=== PATIENT | male | born 1990 | race Two or more races ===

== ENCOUNTER 2020-05-02 19:44 | Emergency (ER) | payer MEDICAID, OTHER ==
[~2020-05-02] VITALS: Ht 185.4 cm; Wt 63.5 kg
[2020-05-02 20:02] VITALS: BP 114/81
== END 2020-05-02 21:42 | disposition left against medical advice (07) ==
LOC: ER 19:44
DX: T25.021A Burn of unspecified degree of right foot, initial encounter (principal); Z53.21 Procedure and treatment not carried out due to patient leaving prior to being seen by health care provider; X11.8XXA Contact with other hot tap-water, initial encounter; Y93.89 Activity, other specified; Y92.89 Other specified places as the place of occurrence of the external cause; Y99.8 Other external cause status

== ENCOUNTER 2020-07-15 06:02 | Emergency (ER) | payer MEDICAID ==
[~2020-07-15] VITALS: Ht 185.4 cm; Wt 59.0 kg
[2020-07-15 06:12] VITALS: BP 113/82
== END 2020-07-15 11:13 | disposition left against medical advice (07) ==
LOC: ER 06:02
DX: M79.671 Pain in right foot (principal); Z53.21 Procedure and treatment not carried out due to patient leaving prior to being seen by health care provider

== ENCOUNTER 2020-11-22 15:08 | Emergency (ER) | payer MEDICAID, OTHER ==
[~2020-11-22] VITALS: Ht 188 cm; Wt 77.1 kg
[2020-11-22 16:45] VITALS: BP 113/86
[2020-11-22] MEDS ORDERED: CLINDAMYCIN 900MG IV 50 ML IV ONE (17:00)
[2020-11-22] MEDS ORDERED: cefTRIAXone 1GM/50ML D5W 50 ML IV ONE (17:00)
[2020-11-22 18:57] LABS: Basophils # (auto) 0 10 ^3/uL (0-0.2); Basophils % (auto) 0.5 % (0.0-2.0); Eosinophils # (auto) 0.1 10 ^3/uL (0-0.8); Eosinophils % (auto) 1.3 % (0.0-7.0); Lymphocytes # (auto) 2.1 10 ^3/uL (0.4-5.4); Monocytes # (auto) 0.9 10 ^3/uL (0-1.3)
[2020-11-22 18:59] LABS: Hematocrit 41.6 % (41.0-53.0); Hemoglobin 13.1 g/dL (13.5-17.5); Lymphocytes % (auto) 26.4 % (10.0-50.0); Mean Corpuscular Hemoglobin 21.5 pg (28.0-32.0); Mean Corpuscular Hgb Conc. 31.4 g/dL (32.0-36.0); Mean Corpuscular Volume 68.5 fL (80.0-100.0); Monocytes % (auto) 11.2 % (0.0-12.0); Neutrophils # (auto) 4.8 10 ^3/uL (1.6-8.6); Neutrophils % (auto) 60.6 % (37.0-80.0); Platelet Count (auto) 267 10^3/uL (140-450); Red Blood Cells 6.07 10^6/uL (4.5-5.90); Red Cell Distribution Width 18.7 % (11.8-14.3)
[2020-11-22 19:21] LABS: Lactic Acid w/Reflex 2.2 mmol/L (0.4-2.0)
[2020-11-22 19:25] LABS: Albumin 3.8 g/dL (3.4-5.0); Calcium 9.1 mg/dL (8.5-10.1); Potassium 3.7 mmol/L (3.5-5.1)
[2020-11-22 19:27] LABS: BUN/Creatinine Ratio 11.3; Bilirubin, Total 0.6 mg/dL (0.2-1.0); Total Protein 9.5 g/dL (6.4-8.2)
== END 2020-11-22 19:39 | disposition home or self-care (01) ==
LOC: EDUNIT# 15:08 → ER 15:08 → EDBD 15:08 → ER 19:39
DX: M86.8X7 Other osteomyelitis, ankle and foot (principal); D64.9 Anemia, unspecified; E86.0 Dehydration; G83.9 Paralytic syndrome, unspecified
CPT/HCPCS: 36415; 73700; 80053; 83605; 85025

== ENCOUNTER 2021-02-12 15:50 | Emergency (ER) | payer MEDICAID ==
[~2021-02-12] VITALS: Ht 188 cm; Wt 63.5 kg
[2021-02-12 15:50] VITALS: BP 136/72
== END 2021-02-12 23:05 | disposition home or self-care (01) ==
LOC: ER 15:50
DX: N39.0 Urinary tract infection, site not specified (principal); F17.210 Nicotine dependence, cigarettes, uncomplicated
CPT/HCPCS: 74176

== ENCOUNTER 2021-02-13 09:28 | Emergency (ER) | payer MEDICAID ==
[~2021-02-13] VITALS: Ht 167.6 cm; Wt 77.1 kg
[2021-02-13 10:16] LABS: Basophils # (auto) 0 10 ^3/uL (0-0.2); Basophils % (auto) 0.5 % (0.0-2.0); Eosinophils # (auto) 0.2 10 ^3/uL (0-0.8); Hemoglobin 12.1 g/dL (13.5-17.5); Lymphocytes # (auto) 1.9 10 ^3/uL (0.4-5.4); Monocytes # (auto) 0.5 10 ^3/uL (0-1.3); Nucleated Red Blood Cells % 0.1 %
[2021-02-13 10:20] LABS: Eosinophils % (auto) 2.9 % (0.0-7.0); Hematocrit 37.7 % (41.0-53.0); Lymphocytes % (auto) 25.8 % (10.0-50.0); Mean Corpuscular Hemoglobin 24.4 pg (28.0-32.0); Mean Corpuscular Hgb Conc. 32.1 g/dL (32.0-36.0); Mean Corpuscular Volume 76.1 fL (80.0-100.0); Monocytes % (auto) 6.6 % (0.0-12.0); Neutrophils # (auto) 4.6 10 ^3/uL (1.6-8.6); Neutrophils % (auto) 64.2 % (37.0-80.0); Platelet Count (auto) 240 10^3/uL (140-450); Red Blood Cells 4.95 10^6/uL (4.5-5.90); White Blood Cell 7.2 10^3/uL (4.4-10.8)
[2021-02-13 10:40] LABS: Red Cell Distribution Width 20.5 % (11.8-14.3)
[2021-02-13 10:58] LABS: Albumin 3.5 g/dL (3.4-5.0); Calcium 9.2 mg/dL (8.5-10.1)
[2021-02-13 11:04] LABS: BUN/Creatinine Ratio 24.1; Bilirubin, Total 0.5 mg/dL (0.2-1.0); Total Protein 8.4 g/dL (6.4-8.2)
[2021-02-13 11:51] LABS: Salicylate < 1.7 mg/dL (2.8-20.0)
[2021-02-13 11:52] LABS: Acetaminophen < 2.0 ug/mL (10-30)
[2021-02-13 18:17] LABS: Urine Bacteria NONE SEEN /hpf (None Seen); Urine Blood Negative /uL (Negative); Urine Mucus FEW (None Seen); Urine Specific Gravity 1.024 (1.001-1.035); Urine WBC 2 /hpf (0 - 3)
[2021-02-13 18:26] LABS: Alcohol, Urine < 3.0 mg/dL (0-10); Amphetamine Screen, Urine POSITIVE (NEGATIVE); Barbiturate Scree,Urine NEGATIVE (NEGATIVE); Benzodiazephine Screen, Urine NEGATIVE (NEGATIVE); Cannabinoid Screen, Urine POSITIVE (NEGATIVE); Cocaine Screen, Urine NEGATIVE (NEGATIVE); Opiate Scree,Urine NEGATIVE (NEGATIVE); Phencyclidine Screen, Urine NEGATIVE (NEGATIVE)
[2021-02-17 08:50] VITALS: BP 126/86
== END 2021-02-17 16:20 | disposition home or self-care (01) ==
LOC: ER 09:28 → EDBD 09:28 → ER 02-17 16:20
DX: R45.851 Suicidal ideations (principal); R10.9 Unspecified abdominal pain; Z20.822 Contact with and (suspected) exposure to COVID-19
CPT/HCPCS: 36415; 80053; 80307; 80329; 81001; 83690; 85025; 87426; 99285; C9803; U0003

== ENCOUNTER 2025-02-26 19:29 | Inpatient (IN) | payer MEDICAID ==
[~2025-02-26] VITALS: Ht 182.9 cm; Wt 160.0 kg
[2025-02-26] MEDS: SODIUM CHLORIDE 0.9% 1,000 ML IV ONE (07:30)
[2025-02-26] MEDS: InsuLIN REG 1unit/0.01ml Soln (100units/ml) IV ONE (07:30)
[2025-02-26] MEDS: CALCIUM GLUC 1,000mg/50ml-NS 50 ML IV SCH (07:30)
[2025-02-26] MEDS: SODIUM BICARB 8.4% 50Meq/50ml SYR Vial IV ONE (07:30)
[2025-02-26] MEDS: DEXTROSE (50%) 50ML SYRG IV ONE (07:30)
[2025-02-26] MEDS: ONDANSETRON HCL 4 MG/2 ML VIAL IV ONE (07:30)
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
--- NOTE | 2025-02-26 20:46 | DVH ---
CHEST RADIOGRAPH Indication: weakness Technique: Single frontal view of the chest was obtained Comparison: None FINDINGS: Lines and Tubes: Hemodialysis catheter in place in the right internal jugular vein with the tip in th e right atrium or cavoatrial junction. Lungs: No focal consolidation. No pneumothorax Pleura: No effusion. No pneumothorax. Cardiomediastinal contours: Unremarkable Bones: No acute osseous abnormality. IMPRESSION: 1. No infiltrates no pneumothorax.
[2025-02-26 21:12] LABS: Basophils # (auto) 0.1 10 ^3/uL (0-0.2); Basophils % (auto) 0.7 % (0.0-2.0); Eosinophils # (auto) 0.3 10 ^3/uL (0-0.8); Hematocrit 27.6 % (41.0-53.0); Hemoglobin 8.8 g/dL (13.5-17.5); Lymphocytes # (auto) 1.4 10 ^3/uL (0.4-5.4); Lymphocytes % (auto) 14.6 % (10.0-50.0); Mean Corpuscular Hemoglobin 29.1 pg (28.0-32.0); Mean Corpuscular Hgb Conc. 31.8 g/dL (32.0-36.0); Mean Corpuscular Volume 91.7 fL (80.0-100.0); Monocytes # (auto) 0.4 10 ^3/uL (0-1.3); Monocytes % (auto) 4.7 % (0.0-12.0); Neutrophils # (auto) 7.4 10 ^3/uL (1.6-8.6); Platelet Count (auto) 335 10^3/uL (140-450); Red Blood Cells 3.02 10^6/uL (4.5-5.90); White Blood Cell 9.6 10^3/uL (4.4-10.8)
[2025-02-26 21:24] LABS: Alanine Aminotransferase 12 U/L (7-40); Anion Gap 10 (5-15); Aspartate Aminotransferase 14 U/L (13-40); BUN/Creatinine Ratio 7.4 (10.0-20.0); Glucose 81 mg/dL (74-106); Sodium 140 mmol/L (136-145)
[2025-02-26 21:34] LABS: Albumin 2.2 g/dL (3.2-4.8); Alkaline Phosphatase 151 U/L (46-116); Bilirubin, Total < 0.2 mg/dL (0.2-1.0); Blood Urea Nitrogen 52 mg/dL (9-23); Calcium 6.4 mg/dL (8.7-10.4); Carbon Dioxide 14 mmol/L (20-31); Chloride 116 mmol/L (98-107); Total Protein 5.4 g/dL (5.7-8.2)
[2025-02-26 21:40] LABS: Potassium 5.9 mmol/L (3.5-5.1)
[2025-02-26 22:56] VITALS: PULSE 109; RESP 17; O2SAT 100
--- NOTE | 2025-02-27 00:07 | DVH ---
Exam: CT CT AB PEL WO CON-NO ORAL OR IV History: Abdominal pain, diarrhea Comparison Study: CT ABD PELVIS WO CONTRAST on DOS: 02/12/21 Technique: Multidetector spiral CT of the abdomen was performed from lung bases to pubic symphysis. Imaging was performed without IV contrast. Axial, coronal and sagittal multiplanar reformats were ob tained from the axial data set by the technologist. Radiation Dose : 1. Abdomen/Pelvis: CTDIvol 13.1 mGy, DLP 1787 mGy*cm. Findings: Evaluation of solid organs is limited due to lack of intravenous contrast use. Lung Bases: No acute or significant lung base finding. Normal heart size. No pleural or pericardial effusion. Liver: The liver is normal in size. No focal lesions. Gallbladder and Biliary Tree: Unremarkable Spleen: Unremarkable Pancreas: The pancreas is grossly normal in appearance. Adrenal Glands: Unremarkable Kidneys: Kidneys are grossly normal without calculi or hydronephrosis. Bladder: Grossly unremarkable for degree of distention. Bowel: The stomach is grossly normal in appearance. Small bowel and colon are normal in caliber and d istribution. The appendix is not visualized; however, no secondary findings of acute appendicitis id entified. Ascites: Small volume ascites in the left pelvis. Lymphadenopathy: No mesenteric, retroperitoneal or periportal lymphadenopathy. Abdominal Wall and Mesentery: Unremarkable. Vasculature: The visualized abdominal aorta is normal in size and caliber. Evaluation of abdominal a nd pelvic vessels is limited due to lack of intravenous contrast. Pelvic Organs: Unremarkable Musculoskeletal: Chronic appearing deformity is seen in the left femoral head with surrounding fat st randing / phlegmon, possibly related to cellulitis and osteomyelitis IMPRESSION: 1. Chronic appearing deformity is seen in the left femoral head with surrounding fat stranding / phle gmon, possibly related to cellulitis and osteomyelitis 2. Small volume ascites is seen in the left pelvis Radiation optimization: All CT scans at this facility use at least one of these dose optimization mamie hniques: automated exposure control mA and/or kV adjustment per patient size (includes targeted exam s where dose is matched to clinical indication) or iterative reconstruction.
--- NOTE | 2025-02-27 00:09 | DVH ---
INDICATION: r/o osteomyelitis COMPARISON: CT R FOOT WO CONTRAST on DOS: 11/22/20 TECHNIQUE: CT of the right foot was performed without contrast. Volume transverse images were obtaine d and reconstructed in multiple planes using bone and soft tissue algorithms. Radiation Dose Information: CT Dose: CTDI volume is 7.89 mGy. Dose-length product is 264.04 mGy*cm FINDINGS: Substantial motion artifact partially obscures detail. There is mild diffuse generalized osseous demineralization. The alignment is grossly normal. The joint spaces are grossly normal. There is no gross evidence of fracture, dislocation or aggressive osseous lesion. There is no joint effusion. The soft tissues are grossly normal. No gross CT evidence of osteomyelitis. IMPRESSION: 1. Significantly limited exam secondary to motion artifact. No gross CT evidence of osteomyelitis. 2. All CT scans at this medical facility are performed using dose modulation techniques as appropriat e to a performed exam including the following: Automated exposure control was utilized; adjustment of the MA and/or KV according to patient size; and use of iterative reconstruction technique.
[2025-02-27] MEDS: SODIUM CHLORIDE 0.9% 1,000 ML IV ONE ×2 (00:20→07:30)
[2025-02-27] MEDS ORDERED: VANCOMYCIN PER PHARMACY 0 MG IV SCH (02:45)
[2025-02-27] MEDS ORDERED: ONDANSETRON HCL 4 MG/2 ML VIAL IV PRN (02:45)
[2025-02-27] MEDS ORDERED: ACETAMINOPHEN 325 MG TAB PO PRN (02:45)
--- NOTE | 2025-02-27 02:49 | DVHHP2 ---
History of Present Illness Reason for Visit: Diarrhea History of Present Illness 34-year-old male presents for evaluation of diarrhea. Patient states noticing diarrhea through his colostomy over the past three days. Denies abdominal pain, nausea or vomiting. He also reports having a wound to his right foot for more than three months. No cardiac or respiratory complaints. Past Medical History Paraplegic Past Surgical History Colostomy Family History Noncontributory Smoke: <1 pack per day ALCOHOL: occassional Drugs: Marijuana Lives: Alone Review of Systems Review of Systems Review of systems are currently negative otherwise dressing HPI. Allergies: Coded Allergies: Iodine (Verified Allergy, Unknown, 02/12/21) Medications Current Medications Medications Dose Ordered Sig/Anastacia Route Start Time Stop Time Status Last Admin Dose Admin Ceftriaxone Sodium 50 ml @ 100 mls/hr DAILY@09 IV 02/27/25 02:45 UNV Vancomycin HCl 0 ml @ 0 mls/hr UD IV 02/27/25 02:45 UNV Exam Vital Signs Vital Signs Date Time Temp Pulse Resp B/P (MAP) Pulse Ox O2 Delivery O2 Flow Rate FiO2 02/26/25 22:56 109 17 100 Room Air* 0 21 02/26/25 22:56 127/90 (102) 02/26/25 21:23 99.1 99.1 Exam Gen: 34-year-old male in mild distress Skin: Warm, dry, normal color and texture, stage IV sacral wound, infected right foot wound HEENT: Normocephalic atraumatic, mucous membranes moist and pink. Neck: Cervical and supraclavicular nodes normal without enlargement, trachea is midline, thyroid gland is normal without masses. Pulmonary: Clear to auscultation and percussion bilaterally. Cardiac: Regular rate and rhythm. No murmur Abdomen: Soft, nontender, nondistended, bowel sounds present all 4 quadrants, no guarding, no rigidity, no organomegaly. Extremities: No cyanosis, clubbing, no edema Neuro: Cranial nerves II through XII grossly intact, normal affect and speech, no focal motor deficits. Labs/Xrays ORDERING PHYSICIAN: MERARI CARVALHO PROCEDURE(s): ABPL - CT AB PEL WO CON-NO ORAL OR IV REASON: Abdominal pain, diarrhea ORDER NUMBER(s): [id number], ACCESSION NUMBER(s): [id number] Exam: CT CT AB PEL WO CON-NO ORAL OR IV History: Abdominal pain, diarrhea Comparison Study: CT ABD PELVIS WO CONTRAST on DOS: 02/12/21 Technique: Multidetector spiral CT of the abdomen was performed from lung bases to pubic symphysis. Imaging was performed without IV contrast. Axial, coronal and sagittal multiplanar reformats were obtained from the axial data set by the technologist. Radiation Dose : 1. Abdomen/Pelvis: CTDIvol 13.1 mGy, DLP 1787 mGy*cm. Findings: Evaluation of solid organs is limited due to lack of intravenous contrast use. Lung Bases: No acute or significant lung base finding. Normal heart size. No pleural or pericardial effusion. Liver: The liver is normal in size. No focal lesions. Gallbladder and Biliary Tree: Unremarkable Spleen: Unremarkable Pancreas: The pancreas is grossly normal in appearance. Adrenal Glands: Unremarkable Kidneys: Kidneys are grossly normal without calculi or hydronephrosis. Bladder: Grossly unremarkable for degree of distention. Bowel: The stomach is grossly normal in appearance. Small bowel and colon are normal in caliber and distribution. The appendix is not visualized; however, no secondary findings of acute appendicitis identified. Ascites: Small volume ascites in the left pelvis. Lymphadenopathy: No mesenteric, retroperitoneal or periportal lymphadenopathy. Abdominal Wall and Mesentery: Unremarkable. Vasculature: The visualized abdominal aorta is normal in size and caliber. Evaluation of abdominal and pelvic vessels is limited due to lack of intravenous contrast. Pelvic Organs: Unremarkable Musculoskeletal: Chronic appearing deformity is seen in the left femoral head with surrounding fat stranding / phlegmon, possibly related to cellulitis and osteomyelitis IMPRESSION: 1. Chronic appearing deformity is seen in the left femoral head with surrounding fat stranding / phlegmon, possibly related to cellulitis and osteomyelitis 2. Small volume ascites is seen in the left pelvis Radiation optimization: All CT scans at this facility use at least one of these dose optimization techniques: automated exposure control mA and/or kV adjustment per patient size (includes targeted exams where dose is matched to clinical indication) or iterative reconstruction. RING PHYSICIAN: MERARI CARVALHO PROCEDURE(s): RFTCT - CT R FOOT WO CONTRAST REASON: r/o osteomyelitis ORDER NUMBER(s): [id number], ACCESSION NUMBER(s): [id number] INDICATION: r/o osteomyelitis COMPARISON: CT R FOOT WO CONTRAST on DOS: 11/22/20 TECHNIQUE: CT of the right foot was performed without contrast. Volume transverse images were obtained and reconstructed in multiple planes using bone and soft tissue algorithms. Radiation Dose Information: CT Dose: CTDI volume is 7.89 mGy. Dose-length product is 264.04 mGy*cm FINDINGS: Substantial motion artifact partially obscures detail. There is mild diffuse generalized osseous demineralization. The alignment is grossly normal. The joint spaces are grossly normal. There is no gross evidence of fracture, dislocation or aggressive osseous lesion. There is no joint effusion. The soft tissues are grossly normal. No gross CT evidence of osteomyelitis. IMPRESSION: 1. Significantly limited exam secondary to motion artifact. No gross CT evidence of osteomyelitis. 2. All CT scans at this medical facility are performed using dose modulation techniques as appropriate to a performed exam including the following: Automated exposure control was utilized; adjustment of the MA and/or KV according to patient size; and use of iterative reconstruction technique. Labs Test 02/26/25 21:00 Range/Units White Blood Count 9.6 4.4-10.8 10^3/uL Red Blood Count 3.02 L 4.5-5.90 10^6/uL Hemoglobin 8.8 L 13.5-17.5 g/dL Hematocrit 27.6 L 41.0-53.0 % Mean Corpuscular Volume 91.7 80.0-100.0 fL Mean Corpuscular Hemoglobin 29.1 28.0-32.0 pg Mean Corpuscular Hemoglobin Concent 31.8 L 32.0-36.0 g/dL Red Cell Distribution Width 17.0 H 11.8-14.3 % Platelet Count 335 140-450 10^3/uL Mean Platelet Volume 6.1 L 6.9-10.8 fL Neutrophils (%) (Auto) 77.0 37.0-80.0 % Lymphocytes (%) (Auto) 14.6 10.0-50.0 % Monocytes (%) (Auto) 4.7 0.0-12.0 % Eosinophils (%) (Auto) 3.0 0.0-7.0 % Basophils (%) (Auto) 0.7 0.0-2.0 % Neutrophils # (Auto) 7.4 1.6-8.6 10 ^3/uL Lymphocytes # (Auto) 1.4 0.4-5.4 10 ^3/uL Monocytes # (Auto) 0.4 0-1.3 10 ^3/uL Eosinophils # (Auto) 0.3 0-0.8 10 ^3/uL Basophils # (Auto) 0.1 0-0.2 10 ^3/uL Nucleated Red Blood Cells 0.0 % Sodium Level 140 136-145 mmol/L Potassium Level 5.9 *H 3.5-5.1 mmol/L Chloride Level 116 H 98-107 mmol/L Carbon Dioxide Level 14 L 20-31 mmol/L Anion Gap 10 5-15 Blood Urea Nitrogen 52 H 9-23 mg/dL Creatinine 7.05 H 0.700-1.30 mg/dL Glomerular Filtration Rate Calc 10 >90 mL/min BUN/Creatinine Ratio 7.4 L 10.0-20.0 Serum Glucose 81 74-106 mg/dL Calcium Level 6.4 L 8.7-10.4 mg/dL Total Bilirubin < 0.2 L 0.2-1.0 mg/dL Aspartate Amino Transferase (AST) 14 13-40 U/L Alanine Aminotransferase (ALT) 12 7-40 U/L Alkaline Phosphatase 151 H 46-116 U/L Total Protein 5.4 L 5.7-8.2 g/dL Albumin 2.2 L 3.2-4.8 g/dL Assessment/Plan Assessment/Plan Assessment Acute renal failure Hypokalemia Right foot infected wound Diarrhea Paraplegic Plan Admit the patient to [facility] to the hospitalist Devynepherman/vancomycin Nephrology consult Podiatry consultation Continue treatment per orders. Plan discussed with: Patient My Orders Orders - MERARI CARVALHO AGACNP Procedure Category Date Status Time Ct Ab Pel Wo Con-No CT 02/26/25 Resulted Oral Or Iv 22:24 Ct R Foot Wo Contrast CT 02/26/25 Resulted 22:44 Admit ADMIT 02/26/25 Transmitted 23:54 Basic Metabolic Panel LAB 02/27/25 Transmitted 02:37 Ceftriaxone 1gm/50ml PHA 02/27/25 Logged D5w (Rocephin) 02:45 Vancomycin Per PHA 02/27/25 Logged Pharmacy 02:45 Vancomycin 1gm/200ml PHA 02/27/25 Logged Pm 02:45 Podiatry Consult CONS 02/27/25 Transmitted 02:37 Stool Bacterial TIGIST 02/27/25 Uncollected Culture 02:37 Clostridium Difficile TIGIST 02/27/25 Uncollected Toxin 02:37 *[facility] CONS 02/27/25 Transmitted -[place] 02:37 Kidney US 02/27/25 Logged 02:37 Renal DIET 02/27/25 Transmitted Standard(2gna,3gk,Lopho) Breakfast Hydrocodone-Acet PHA 02/27/25 Transmitted 5/325mg Tab ([place] 02:45 Ondansetron Hcl PHA 02/27/25 Transmitted (Zofran) 02:45 Complete Blood Count LAB 02/28/25 Verified 04:00 Comprehensive LAB 02/28/25 Verified Metabolic Panel 04:00 Condition: Stable IRASEMA 02/27/25 In Process 02:37 Acetaminophen Tablet PHA 02/27/25 Transmitted (Tylenol Tablet) 02:45 Bedrest With Bathroom IRASEMA 02/27/25 In Process Privileg 02:37 Heparin Sodium PHA 02/27/25 Transmitted (Porcine) 10:00 Date of Service: Feb 26, 2025 Billing Provider: MERARI CARVALHO Common Visit Codes: [id number] INP/OBS CARE (HIGH) MERARI CARVALHO Feb 27, 2025 02:49
[2025-02-27] MEDS: HYDROcodone-ACET 5/325MG TAB PO PRN (05:37)
[2025-02-27 07:30] VITALS: PULSE 88; RESP 18; O2SAT 96
[2025-02-27] MEDS: cefTRIAXone 1GM/50ML D5W 50 ML IV SCH (07:30)
[2025-02-27] MEDS: VANCOMYCIN 1GM/200ML PM 200 ML IV ONE ×2 (07:30→15:00)
[2025-02-27] MEDS: SODIUM CHLORIDE 0.9% 1,000 ML IV SCH (09:30)
[2025-02-27] MEDS ORDERED: ENOXAPARIN SOD 40 MG/0.4 ML SYRINGE SC ONE (09:30)
[2025-02-27] MEDS: PANTOPRAZOLE 40 MG/10 ML VIAL INJ IV ONE (09:30)
[2025-02-27] MEDS: ENOXAPARIN SOD 30 MG/0.3 ML SYRINGE SC SCH (10:00)
[2025-02-27] MEDS: PANTOPRAZOLE 40 MG/10 ML VIAL INJ IV SCH (10:00)
[2025-02-27] MEDS: HEPARIN SODIUM (PORCINE) 5000 UNITS/ML 1ML VIAL SC SCH (10:00)
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
[2025-02-27] MEDS: metroNIDAZOLE 500MG/100ML 100 ML IV ONE (10:44)
[2025-02-27 12:00] VITALS: TEMP 97.6
--- NOTE | 2025-02-27 13:10 | DVHINCON2 ---
Date of service: Feb 27, 2025 Referring Physician Jacobo Ramirez NP Reason for Consultation Acute kidney injury History of Present Illness Mr. Dimas is a 34-year-old male with known history of paraplegia who presented further evaluation and management of significant loose stool output from his ostomy. He was seen in the emergency department open his eyes to voice but was not cooperative with physical examination. Most of the history was obtained through the chart. Lab data notable for significant elevation to serum creatinine, hyperkalemia, hyperchloremic metabolic acidosis. Past Medical History Paraplegia Allergies: Coded Allergies: Piperacillin (Verified Allergy, Intermediate, HIVES, 02/27/25) Tazobactam (Verified Allergy, Intermediate, HIVES, 02/27/25) Iodine (Verified Allergy, Unknown, 02/12/21) Current Medications Current Medications Medications (Trade) Dose Ordered Sig/Anastacia Route PRN Reason Start Time Stop Time Status Last Admin Calcium Gluconate/ Sodium Chloride 50 ml @ 100 mls/hr Q30M IV 02/26/25 22:00 02/26/25 22:59 DC Ceftriaxone Sodium 50 ml @ 100 mls/hr DAILY@09 IV 02/27/25 02:45 02/27/25 09:05 Vancomycin HCl 0 ml @ 0 mls/hr UD IV 02/27/25 02:45 Hold Acetaminophen/ Hydrocodone Bitart ([place] 5/325MG Tab) 1 tab Q4HP PRN PO MODERATE PAIN (4-6 PAIN SCALE) 02/27/25 02:45 02/27/25 05:37 Ondansetron HCl (Zofran) 4 mg Q4HP PRN IV NAUSEA / VOMITING 02/27/25 02:45 Acetaminophen (Tylenol Tablet) 650 mg Q6HP PRN PO PAIN SCALE 1-3 OR TEMP>100.4 02/27/25 02:45 Heparin Sodium (Porcine) 5,000 units Q12HR SC 02/27/25 10:00 Metronidazole 100 ml @ 100 mls/hr Q8HR IV 02/27/25 14:00 Sodium Chloride 1,000 ml @ 150 mls/hr Q6H40M IV 02/27/25 09:30 02/27/25 09:30 Pantoprazole Sodium (Protonix) 40 mg DAILY IV 02/27/25 10:00 Enoxaparin Sodium (Lovenox) 30 mg DAILY SC 02/27/25 10:00 02/27/25 12:52 DC Review of Systems Unable to be obtained due to Mr. Dimas not wanting to answer questions. H&P Exam Vital Signs/I&O Vital Sign Date Time Temp Pulse Resp B/P (MAP) Pulse Ox O2 Delivery O2 Flow Rate FiO2 02/27/25 10:00 91 15 129/85 (100) 100 02/27/25 08:00 97.5 97.5 02/27/25 07:30 Room Air* 0 21 Physical Exam Gen: nad, lying supine in no acute distress heent: nc/at, Rest of the exam deferred Labs/Diagnostic Data Labs/Diagnostic Data Laboratory Tests Test 02/26/25 21:00 Range/Units White Blood Count 9.6 4.4-10.8 10^3/uL Red Blood Count 3.02 L 4.5-5.90 10^6/uL Hemoglobin 8.8 L 13.5-17.5 g/dL Hematocrit 27.6 L 41.0-53.0 % Mean Corpuscular Volume 91.7 80.0-100.0 fL Mean Corpuscular Hemoglobin 29.1 28.0-32.0 pg Mean Corpuscular Hemoglobin Concent 31.8 L 32.0-36.0 g/dL Red Cell Distribution Width 17.0 H 11.8-14.3 % Platelet Count 335 140-450 10^3/uL Mean Platelet Volume 6.1 L 6.9-10.8 fL Neutrophils (%) (Auto) 77.0 37.0-80.0 % Lymphocytes (%) (Auto) 14.6 10.0-50.0 % Monocytes (%) (Auto) 4.7 0.0-12.0 % Eosinophils (%) (Auto) 3.0 0.0-7.0 % Basophils (%) (Auto) 0.7 0.0-2.0 % Neutrophils # (Auto) 7.4 1.6-8.6 10 ^3/uL Lymphocytes # (Auto) 1.4 0.4-5.4 10 ^3/uL Monocytes # (Auto) 0.4 0-1.3 10 ^3/uL Eosinophils # (Auto) 0.3 0-0.8 10 ^3/uL Basophils # (Auto) 0.1 0-0.2 10 ^3/uL Nucleated Red Blood Cells 0.0 % Sodium Level 140 136-145 mmol/L Potassium Level 5.9 *H 3.5-5.1 mmol/L Chloride Level 116 H 98-107 mmol/L Carbon Dioxide Level 14 L 20-31 mmol/L Anion Gap 10 5-15 Blood Urea Nitrogen 52 H 9-23 mg/dL Creatinine 7.05 H 0.700-1.30 mg/dL Glomerular Filtration Rate Calc 10 >90 mL/min BUN/Creatinine Ratio 7.4 L 10.0-20.0 Serum Glucose 81 74-106 mg/dL Calcium Level 6.4 L 8.7-10.4 mg/dL Total Bilirubin < 0.2 L 0.2-1.0 mg/dL Aspartate Amino Transferase (AST) 14 13-40 U/L Alanine Aminotransferase (ALT) 12 7-40 U/L Alkaline Phosphatase 151 H 46-116 U/L Total Protein 5.4 L 5.7-8.2 g/dL Albumin 2.2 L 3.2-4.8 g/dL Assessment IMP: 1) Hemodynamically mediated VALENCIA/VMN, possible prerenal etiology in the setting of volume deplete state 2) CKD stage IIIB? 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 Thank you for the consultation. Plan discussed with: Other EUNICE ROLLINS MD Feb 27, 2025 13:10
[2025-02-27] MEDS: SODIUM BICARB 50mEq/50ml Vial 150 ML in D5W 5% 1,000 ML IV SCH (15:00)
[2025-02-27] MEDS: metroNIDAZOLE 500MG/100ML 100 ML IV SCH (15:10)
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
[2025-02-27 19:10] VITALS: BP 141/78; PULSE 101; RESP 20; O2SAT 96
== END 2025-02-27 19:23 | disposition home or self-care (01) | DRG 248 ==
LOC: EDBD 19:29 → ER 19:29 → OVERFLOW 23:54
PROVIDERS: ADMIT Nurse Practitioner; ATTEND Nurse Practitioner
DX: A04.9 Bacterial intestinal infection, unspecified (principal); N17.0 Acute kidney failure with tubular necrosis; E87.29 Other acidosis; G82.20 Paraplegia, unspecified; D63.8 Anemia in other chronic diseases classified elsewhere; E88.09 Other disorders of plasma-protein metabolism, not elsewhere classified; L03.115 Cellulitis of right lower limb; E86.0 Dehydration; E87.8 Other disorders of electrolyte and fluid balance, not elsewhere classified; E87.5 Hyperkalemia; F17.210 Nicotine dependence, cigarettes, uncomplicated; Z93.3 Colostomy status; N18.32 Chronic kidney disease, stage 3b
CPT/HCPCS: 36415; 71045; 73700; 74176; 80053; 85025; 87205; G0378; J3490